=== PATIENT | male | born 1960 | race Caucasian/White ===

== ENCOUNTER 2017-11-04 11:36 | Emergency (ER) | payer OTHER ==
[~2017-11-04] VITALS: Ht 180.3 cm; Wt 104.0 kg
[2017-11-04] MEDS ORDERED: BUPIVACAINE 0.25% ONE (11:56)
[2017-11-04] MEDS ORDERED: BUPIVACAINE/PF 0.25% INFIL ONE (12:00)
[2017-11-04] MEDS ORDERED: LIDOCAINE 2%, 20ML INFIL ONE (12:00)
[2017-11-04] MEDS ORDERED: CEFAZOLIN 1,000 MG ONE (12:16)
[2017-11-04] MEDS ORDERED: CEFAZOLIN 1,000 MG IM ONE (12:30)
== END 2017-11-04 13:37 | disposition home or self-care (01) ==
LOC: ED 13:20 → MERGE 13:20 → ED 13:37
DX: S67.192A Crushing injury of right middle finger, initial encounter (principal); Z89.021 Acquired absence of right finger(s); F17.200 Nicotine dependence, unspecified, uncomplicated; X58.XXXA Exposure to other specified factors, initial encounter; Y93.89 Activity, other specified; Y99.0 Civilian activity done for income or pay; Y92.69 Other specified industrial and construction area as the place of occurrence of the external cause
CPT/HCPCS: 64450; 73140; 96372; 99284; J0690; J3490